=== PATIENT | female | born 1990 | race Caucasian/White ===

== ENCOUNTER → 2019-01-11 10:08 | Outpatient (CLI) | payer OTHER, SELFPAY ==
[2019-01-11 14:27] LABS: Basophils % 0.3 % (0.1-2.0); Eosinophils # 0.1 K/mm3 (0.0-0.4); Eosinophils % 1.2 % (0.1-12.0); Hematocrit 46.9 % (37.0-47.0); Hemoglobin 15.5 g/dL (12.2-16.2); Lymphocytes # 2.6 K/mm3 (0.7-4.5); Mean Corpuscular Hemoglobin 30.5 pg (27.0-31.2); Mean Corpuscular Volume 92.3 fl (81-99); Mean Platelet Volume 9.6 fl (7.4-10.4); Monocytes # 0.6 K/mm3 (0.1-1.0); Monocytes % 5.8 % (1.7-9.3); Neutrophils # 6.7 K/mm3 (1.8-7.8); Neutrophils % 66.6 % (37.0-80.0); Platelet Count 263 K/mm3 (142-424); Red Blood Count 5.08 M/mm3 (4.20-5.40); Red Cell Distribution Width 12.7 % (11.5-17.5); White Blood Count 10.1 K/mm3 (4.8-10.8)
[2019-01-11 16:20] LABS: Hemoglobin A1C 8.1 % (0.0-7.0)
[2019-01-11 16:51] LABS: Alanine Aminotransferase 30 U/L (12-78); Albumin Level 4.4 gm/dL (3.4-5.0); Albumin/Globulin Ratio 1.4 (1.1-1.8); Alkaline Phosphatase 113 U/L (46-116); Anion Gap 15.2 mEq/L (5-15); Aspartate Amino Transferase 15 U/L (15-37); Bilirubin,Total 0.4 mg/dL (0.2-1.0); Blood Urea Nitrogen 11 mg/dL (7-18); Calcium 9.2 mg/dL (8.5-10.1); Carbon Dioxide 23 mmol/L (21.0-32.0); Chloride 102 mmol/L (98-107); Cholesterol 192 mg/dL (140-200); Creatinine,Serum 0.58 mg/dL (0.55-1.02); Estimated Glomerular Filt Rate 125 ml/min (>60); GFR (African American) 151 ML/MIN (>60); Globulin 3.2 gm/dl (1.3-3.2); Glucose 234 mg/dL (74-106); HDL Cholesterol 63 mg/dL (29-89); LDL Cholesterol 121 mg/dL (0-130); Potassium 4.2 mmoL/L (3.5-5.1); Sodium 136 mmol/L (136-145); T4 (Thyroxine) 8.4 ug/dl (4.7-13.3); Total Protein,Serum 7.6 gm/dL (6.4-8.2); Triglycerides 38 mg/dL (30-200); VLDL Cholesterol 8 mg/dL (0-40)
[2019-01-11 20:39] LABS: Thyroid Stimulating Hormone 1.35 uIU/ml (0.358-3.740)
[2019-01-12 13:00] LABS: Vitamin D 25 Hydroxy 19.3 ng/mL (30.0-100.0)
[2019-01-13 07:22] LABS: Insulin Level Total 2.5 uIU/mL (2.6-24.9)
== END ==
PROVIDERS: Visit Provider Physician Assistant
DX: N89.8 Other specified noninflammatory disorders of vagina (principal); R73.09 Other abnormal glucose; R73.9 Hyperglycemia, unspecified
CPT/HCPCS: 80053; 80061; 82652; 83036; 83525; 84436; 84443; 84681; 85025; 87210

== ENCOUNTER 2021-12-27 18:39 | Emergency (ER) | payer MEDICAID, SELFPAY ==
[2021-12-27 19:00] VITALS: BP 116/57; PULSE 78; RESP 20; TEMP 37.1; O2SAT 95; BMI 23.0
--- NOTE | 2021-12-27 19:01 | EXP.UTC ---
Discharge Plan Disposition Patient Disposition: Home, Self-Care Condition: Good Prescriptions Prescriptions: New amoxicillin [amoxicillin] 500 mg tablet 500 mg PO TID 10 Days Qty: 30 0RF No Action cholecalciferol (vitamin D3) 25 mcg (1,000 unit) capsule 1,000 unit PO DAILY Qty: 90 1RF ergocalciferol (vitamin D2) 1,250 mcg (50,000 unit) capsule 50,000 unit PO QWEEK 90 Days Qty: 12 0RF fluconazole [Diflucan] 150 mg tablet 150 mg PO DAILY 5 Days Qty: 5 0RF norgestimate-ethinyl estradiol [Clj-Zg-Zropbfsz] 0.18/0.215/0.25 mg-25 mcg tablet 1 tab PO DAILY Qty: 28 5RF Referrals Follow up/Referrals: Estefany Reyes PA [Primary Care Provider] - See instructions Activity Restrictions/Add. Instructions Additional Instructions/Restrictions: Drink plenty of fluids. Take tylenol or ibuprofen for pain or fever. Take the medications as directed. Follow up with your regular doctor. GO TO THE ER FOR ANY WORSENING SYMPTOMS Throw your tooth brush away and get a new one. Clinical Impressions Clinical Impression: Strep throat Stand Alone Forms Stand Alone Forms: Work/School Release Instructions Patient Instructions: Strep Throat, DI for Strep Throat Discharge ED Provider: Abhay Harp [facility] General Stated complaint: pressure on head Time Seen by Provider: 12/27/21 18:59 History of Present Illness Provider Complaint: She c/o sore throat for the past 2 days. Her son currently has strep throat. Related Data Previous Rx's Medication Instructions Recorded cholecalciferol (vitamin D3) 25 1,000 unit PO DAILY #90 caps 1020 mcg (1,000 unit) capsule ergocalciferol (vitamin D2) 1,250 50,000 unit PO QWEEK 90 days #12 03/10/20 mcg (50,000 unit) capsule caps fluconazole 150 mg tablet 150 mg PO DAILY 5 days #5 tabs 05/25/19 (Diflucan) norgestimate 0.18 mg/0.215 mg/0.25 1 tab PO DAILY #28 tabs 05/24/20 mg-ethinyl estradiol 25 mcg tablet (Wsu-Uk-Ewrtqpeb) amoxicillin 500 mg tablet 500 mg PO TID 10 days #30 tabs 12/27/21 Allergies Allergy/AdvReac Type Severity Reaction Status Date / Time No Known Allergies Allergy Verified 12/27/21 19:17 PFSH PFS Medical History Diabetes mellitus, type 2 Social History Smoking Status: Current every day smoker tobacco type: cigarettes packs per day: 1 alcohol intake: never substance use type: denies use current occupational status: employed Travel in the last 8 weeks: None household members: family housing: house ROS Obtained: Yes All systems reviewed & no additional complaints except as documented Constitutional Constitutional: Reports chills and Reports fever(s) Eyes Eyes: Denies eye discharge ENT Ears, Nose, Mouth, and Throat: Reports as per HPI Cardiovascular Cardiovascular: Denies chest pain Respiratory Respiratory: Denies chest congestion and Reports cough Gastrointestinal Gastrointestingal: Reports nausea; Denies abdominal pain, constipation, cramping, diarrhea or vomiting Musculoskeletal Musculoskeletal: Denies arthralgias Integumentary/Breasts Skin/Breast: Denies rash Neurologic Neurologic: Denies paresthesias Physical Exam General General appearance: alert and in no apparent distress Head Head exam: atraumatic, normocephalic and normal inspection Eye Eye exam: Present normal appearance, PERRL and EOMI ENT ENT exam: Present mucous membranes moist and normal external ear exam Expanded ENT Exam TM/Canal exam: Bilateral TM: erythema and bulging Nose exam: Absent sinus tenderness Mouth exam: Present normal external inspection; Absent drooling Teeth exam: Present normal inspection Throat exam: Present tonsillar erythema, tonsillomegaly and tonsillar exudate Neck Neck exam: Present normal inspection, full ROM and trachea midline; Absent tenderness, meningismus or lymphadenopathy Chest
[2021-12-27 19:18] LABS: UTC Strep Screen (Rapid) Positive (Negative)
[2021-12-27 19:39] VITALS: BP 116/57; PULSE 78; RESP 20; TEMP 37.1; O2SAT 95
== END 2021-12-27 20:14 | disposition home or self-care (01) ==
PROVIDERS: Emergency Provider Nurse Practitioner Family; PCP Physician Assistant
DX: J02.0 Streptococcal pharyngitis (principal)
CPT/HCPCS: 87880; 99212; G0463

== ENCOUNTER 2022-01-30 12:44 | Emergency (ER) | payer MEDICAID, SELFPAY ==
[2022-01-30 14:10] VITALS: BP 124/69; PULSE 86; RESP 18; TEMP 37; O2SAT 98; BMI 23.0
--- NOTE | 2022-01-30 14:34 | EXP.UTC ---
Discharge Plan Disposition Patient Disposition: Home, Self-Care Condition: Good Prescriptions Prescriptions: New methylprednisolone [Medrol (Ramana)] 4 mg tablets,dose pack See Rx Instructions .Route .COMPLEX 6 Days Qty: 21 0RF Rx Instructions: taper pack; cefdinir 300 mg capsule 300 mg PO BID Qty: 20 0RF fluticasone propionate [Flonase Allergy Relief] 50 mcg/actuation spray,suspension 1 spray intranasal DAILY Qty: 16 0RF Rx Instructions: administer into each nostril No Action cholecalciferol (vitamin D3) 25 mcg (1,000 unit) capsule 1,000 unit PO DAILY Qty: 90 1RF ergocalciferol (vitamin D2) 1,250 mcg (50,000 unit) capsule 50,000 unit PO QWEEK 90 Days Qty: 12 0RF fluconazole [Diflucan] 150 mg tablet 150 mg PO DAILY 5 Days Qty: 5 0RF norgestimate-ethinyl estradiol [Ucb-Ka-Djkoctph] 0.18/0.215/0.25 mg-25 mcg tablet 1 tab PO DAILY Qty: 28 5RF amoxicillin [amoxicillin] 500 mg tablet 500 mg PO TID 10 Days Qty: 30 0RF Referrals Follow up/Referrals: Estefany Reyes PA [Primary Care Provider] - See instructions Activity Restrictions/Add. Instructions Additional Instructions/Restrictions: *Monitor Temp, Over the counter Motrin or Tylenol as directed/as needed Tylenol every 4 hours and Motrin every 6 hours (as long as your family doctor has told you that you can take it) for fever or pain. and straight to ER if unable to lower temp less than 101.0 after medication given *Warm salt water gargles may help to soothe the throat *Throat Lozenges? *Warm fluids like tea with honey may help to soothe the throat? *Sleep elevated *Humidifier/Vaporizer *Flonase 2 sprays in each nostril daily but be aware that it may take 2-3 days before you notice improvement Your throat swab was sent for culture. Those results are typically sent to your primary care. Be sure to follow up in 2-3 days with your family doctor/primary care physician if no improvement so they can review those result and treat if necessary. If you don?t have a primary care doctor, I recommend you get one but in the mean time, you will have to return to a walk in clinic Follow up IMMEDIATELY for new or worsening symptoms or no Noticeable improvement over the next 48-72 hours. 911 for difficulty breathing or swallowing Clinical Impressions Clinical Impression: Otitis media Stand Alone Forms Stand Alone Forms: Work/School Release Instructions Patient Instructions: Middle Ear Infection, Middle Ear Infections (Alternative Therapy) Discharge ED Provider: Sandra José [facility] [place] HPI General Stated complaint: Lt ear pain, cough, sore throat Mode of Arrival: Ambulatory Source of Information: Patient Limitations: No Limitations Time Seen by Provider: 01/30/22 14:34 Description of Symptoms (Recalled from Triage Doc. by RN): PATIENT C/O SORE THROAT, COUGH, SNEEZING, AND SWOLLEN LYMPH NODES TO LEFT SIDE HEENT Symptoms (Recalled from RN notes): Yes Resp Symptoms (Recalled from RN notes): No Skin Symptoms (Recalled from RN notes): No MS Symptoms (Recalled from RN notes): No Functional Status (Recalled from RN notes): WNL History of Present Illness Provider Complaint: Patient states that her son had parainfluenza a couple weeks ago and she got sick then but states that she just thought it was a virus so she didnt come in States that now it has settled in her left ear and having pain and pressure in her left ear, sore throat and swollen lymph nodes so today she came in to get it checked out Related Data Previous Rx's Medication Instructions Recorded cholecalciferol (vitamin D3) 25 1,000 unit PO DAILY #90 caps 05/25/19 mcg (1,000 unit) capsule ergocalciferol (vitamin D2) 1,250 50,000 unit PO QWEEK 90 days #12 05/25/19 mcg (50,000 unit) capsule caps fluconazole 150 mg tablet 150 mg PO DAILY 5 days #5 tabs 05/25/19 (Diflucan) norgestimate 0.18 mg/0.215 mg/0.25 1 tab PO DAILY #28 tabs 05/25/19 m
[2022-01-30 14:40] VITALS: BP 124/69; PULSE 86; RESP 18; TEMP 37; O2SAT 98
[2022-01-30 14:42] LABS: UTC Strep Screen (Rapid) Negative (Negative)
== END 2022-01-30 14:44 | disposition home or self-care (01) ==
PROVIDERS: Emergency Provider Nurse Practitioner; PCP Physician Assistant
DX: H66.92 Otitis media, unspecified, left ear (principal); J02.9 Acute pharyngitis, unspecified; R05.9 Cough, unspecified; R51.9 Headache, unspecified; E11.9 Type 2 diabetes mellitus without complications; F17.210 Nicotine dependence, cigarettes, uncomplicated; Z79.51 Long term (current) use of inhaled steroids; Z79.52 Long term (current) use of systemic steroids; Z79.899 Other long term (current) drug therapy; Z79.3 Long term (current) use of hormonal contraceptives
CPT/HCPCS: 87880; 99213; G0463

== ENCOUNTER 2022-03-25 14:06 | Emergency (ER) | payer MEDICAID, SELFPAY ==
[2022-03-25 14:30] VITALS: BP 128/75; PULSE 98; RESP 19; TEMP 37.1; O2SAT 97; BMI 23.6
--- NOTE | 2022-03-25 14:34 | EXP.UTC ---
Discharge Plan Disposition Patient Disposition: Home, Self-Care Condition: Good Prescriptions Prescriptions: New gfakwrorgemmzfv-agrceryox-CU [Bromfed DM] 2-30-10 mg/5 mL Syrup 5 ml PO Q6H PRN (Reason: Cough) Qty: 240 0RF ondansetron 4 mg Tablet,Disintegrating 4 mg PO Q8H PRN (Reason: Nausea) Qty: 12 0RF No Action cholecalciferol (vitamin D3) 25 mcg (1,000 unit) capsule 1,000 unit PO DAILY Qty: 90 1RF ergocalciferol (vitamin D2) 1,250 mcg (50,000 unit) capsule 50,000 unit PO QWEEK 90 Days Qty: 12 0RF norgestimate-ethinyl estradiol [Mla-Eg-Onukeblu] 0.18/0.215/0.25 mg-25 mcg tablet 1 tab PO DAILY Qty: 28 5RF Referrals Follow up/Referrals: Estefany Reyes PA [Primary Care Provider] - See instructions Activity Restrictions/Add. Instructions Additional Instructions/Restrictions: Drink plenty of fluids. Take tylenol or ibuprofen for pain or fever. Take the medications as directed. Follow up with your regular doctor. GO TO THE ER FOR ANY WORSENING SYMPTOMS Clinical Impressions Clinical Impression: COVID-19, Acute viral syndrome Instructions Patient Instructions: Coronavirus Disease 2019, Preventing the Spread of Coronavirus Discharge Instructions Discharge ED Provider: Abhay Harp [facility] General Stated complaint: achey,fever,cough,covid exposure Time Seen by Provider: 03/25/22 14:34 History of Present Illness Provider Complaint: She started running a fever and feeling bad yesterday. She has a dry cough also. She tested herself at home for covid-19 and the test was positive. She came here because she will need a pcr covid test for her employer. Related Data Previous Rx's Medication Instructions Recorded cholecalciferol (vitamin D3) 25 1,000 unit PO DAILY #90 caps 03/10/20 mcg (1,000 unit) capsule ergocalciferol (vitamin D2) 1,250 50,000 unit PO QWEEK 90 days #12 03/10/20 mcg (50,000 unit) capsule caps norgestimate 0.18 mg/0.215 mg/0.25 1 tab PO DAILY #28 tabs 05/24/ mg-ethinyl estradiol 25 mcg tablet (Fha-Th-Motcxgaj) lcasbvhnpzenfjo-cxidlimjetadfhi-MR 5 ml PO Q6H PRN Cough #240 mL 03/25/22 2 mg-30 mg-10 mg/5 mL oral syrup (Bromfed DM) ondansetron 4 mg disintegrating 4 mg PO Q8H PRN Nausea #12 tabs 03/25/22 tablet Allergies Allergy/AdvReac Type Severity Reaction Status Date / Time No Known Allergies Allergy Verified 03/25/22 14:48 [facility] Disclaimer: The information contained in this section may have been updated after the patient was seen, as this information can be updated by other users. Medical History Diabetes mellitus, type 2 Social History Smoking Status: Current every day smoker tobacco type: cigarettes packs per day: 1 alcohol intake: never substance use type: denies use current occupational status: employed Travel in the last 8 weeks: None household members: family housing: house ROS Obtained: Yes All systems reviewed & no additional complaints except as documented Constitutional Constitutional: Reports chills and Reports fever(s) Eyes Eyes: Denies eye discharge ENT Ears, Nose, Mouth, and Throat: Reports as per HPI Cardiovascular Cardiovascular: Denies chest pain Respiratory Respiratory: Denies chest congestion and Reports cough Gastrointestinal Gastrointestingal: Reports nausea; Denies abdominal pain, constipation, cramping, diarrhea or vomiting Musculoskeletal Musculoskeletal: Denies arthralgias Integumentary/Breasts Skin/Breast: Denies rash Neurologic Neurologic: Denies paresthesias Physical Exam General General appearance: alert and in no apparent distress Head Head exam: atraumatic, normocephalic and normal inspection Eye Eye exam: Present normal appearance, PERRL and EOMI ENT ENT exam: Present normal exam, normal oropharynx, mucous membranes moist, TM's normal bilaterally and normal
[2022-03-25 14:48] LABS: UTC Influenza A Antigen Negative (Negative); UTC Influenza B Antigen Negative (Negative)
[2022-03-25 15:56] VITALS: BP 128/75; PULSE 98; RESP 19; TEMP 37.1; O2SAT 97
== END 2022-03-25 15:55 | disposition home or self-care (01) ==
PROVIDERS: Emergency Provider Nurse Practitioner Family; PCP Physician Assistant
DX: U07.1 COVID-19 (principal); R50.9 Fever, unspecified; R05.9 Cough, unspecified
CPT/HCPCS: 87804; 99212; 99213; C9803; G0463; U0003; U0005

== ENCOUNTER 2022-07-27 14:17 | Emergency (ER) | payer MEDICAID, SELFPAY ==
[2022-07-27 14:20] VITALS: BP 135/78; PULSE 88; RESP 20; TEMP 37.1; O2SAT 97; BMI 23.9
--- NOTE | 2022-07-27 14:30 | EXP.UTC ---
Discharge Plan Disposition Patient Disposition: Home, Self-Care Condition: Good Prescriptions Prescriptions: New fluticasone propionate [Flonase Allergy Relief] 50 mcg/actuation spray,suspension 1 - 2 spray intranasal DAILY Qty: 16 0RF Rx Instructions: administer into each nostril azithromycin [Zithromax Z-Ramana] 250 mg tablet See Rx Instructions .ROUTE .COMPLEX 5 Days Qty: 6 0RF Rx Instructions: For 250 mg dose pack: take 500 mg today (day 1), then 250 mg for 4 days (days 2-5) No Action cholecalciferol (vitamin D3) 25 mcg (1,000 unit) capsule 1,000 unit PO DAILY Qty: 90 1RF ergocalciferol (vitamin D2) 1,250 mcg (50,000 unit) capsule 50,000 unit PO QWEEK 90 Days Qty: 12 0RF norgestimate-ethinyl estradiol [Vly-Mj-Jukeagmi] 0.18/0.215/0.25 mg-25 mcg tablet 1 tab PO DAILY Qty: 28 5RF czmrpfcprpykxvg-zjmzlacus-ZC [Bromfed DM] 2-30-10 mg/5 mL Syrup 5 ml PO Q6H PRN (Reason: Cough) Qty: 240 0RF ondansetron 4 mg Tablet,Disintegrating 4 mg PO Q8H PRN (Reason: Nausea) Qty: 12 0RF Referrals Follow up/Referrals: Estefany Reyes PA [Primary Care Provider] - See instructions Activity Restrictions/Add. Instructions Additional Instructions/Restrictions: *Monitor Temp, Over the counter Motrin or Tylenol as directed/as needed Tylenol every 4 hours and Motrin every 6 hours (as long as your family doctor has told you that you can take it) for fever or pain. and straight to ER if unable to lower temp less than 101.0 after medication given *Warm salt water gargles may help to soothe the throat *Throat Lozenges? *Warm fluids like tea with honey may help to soothe the throat? *Sleep elevated *Humidifier/Vaporizer *Flonase 2 sprays in each nostril daily but be aware that it may take 2-3 days before you notice improvement Your throat swab was sent for culture. Those results are typically sent to your primary care. Be sure to follow up in 2-3 days with your family doctor/primary care physician if no improvement so they can review those result and treat if necessary. If you don?t have a primary care doctor, I recommend you get one but in the mean time, you will have to return to a walk in clinic Follow up IMMEDIATELY for new or worsening symptoms or no Noticeable improvement over the next 48-72 hours. 911 for difficulty breathing or swallowing Clinical Impressions Clinical Impression: Sinusitis Instructions Patient Instructions: DI for Sinusitis, Sinusitis Discharge ED Provider: Sandra José [facility] [place] HPI General Stated complaint: Congestion, sore throat, RT ear pain Mode of Arrival: Ambulatory Source of Information: Patient Limitations: No Limitations Time Seen by Provider: 07/27/22 14:30 Description of Symptoms (Recalled from Triage Doc. by RN): PATIENT C/O SORE THROAT, COUGH AND FATIGUE SINCE FRIDAY HEENT Symptoms (Recalled from RN notes): Yes Resp Symptoms (Recalled from RN notes): Yes Skin Symptoms (Recalled from RN notes): No MS Symptoms (Recalled from RN notes): No Functional Status (Recalled from RN notes): WNL History of Present Illness Provider Complaint: Patient states that she had been having sinus congestion and pressure for about a week then she started on about Fri with sore throat, cough, feeling ache and feels like it is trying to move into her chest Related Data Previous Rx's Medication Instructions Recorded cholecalciferol (vitamin D3) 25 1,000 unit PO DAILY #90 caps 05/25/19 mcg (1,000 unit) capsule ergocalciferol (vitamin D2) 1,250 50,000 unit PO QWEEK 90 days #12 05/25/19 mcg (50,000 unit) capsule caps norgestimate 0.18 mg/0.215 mg/0.25 1 tab PO DAILY #28 tabs 05/25/19 mg-ethinyl estradiol 25 mcg tablet (Eac-Ed-Juqgeenu) fezysnlfwltkils-xurmlzncglcszsq-PZ 5 ml PO Q6H PRN Cough #240 mL 03/25/22 2 mg-30 mg-10 mg/5 mL oral syrup (Bromfed DM) ondansetron 4 mg disintegrating 4 mg PO Q8H PRN Nausea #12 tabs 03/25/22 tablet az
[2022-07-27 14:41] LABS: UTC Strep Screen (Rapid) Negative (Negative)
[2022-07-27 14:42] VITALS: BP 135/78; PULSE 88; RESP 20; TEMP 37.1; O2SAT 97
== END 2022-07-27 14:50 | disposition home or self-care (01) ==
PROVIDERS: Emergency Provider Nurse Practitioner; PCP Physician Assistant
DX: J01.90 Acute sinusitis, unspecified (principal); R07.0 Pain in throat; F17.210 Nicotine dependence, cigarettes, uncomplicated; E11.9 Type 2 diabetes mellitus without complications
CPT/HCPCS: 87880; 99212; 99214; G0463